=== PATIENT | male | born 1960 | race Caucasian/White ===

== ENCOUNTER 2018-10-25 10:36 | Emergency (ER) | payer BC ==
[2018-10-25 10:45] VITALS: BP 119/67
[2018-10-25] MEDS ORDERED: OXYCODONE-ACETAMINOPHEN 5-325 MG TABLET PO ONE ×2 (12:03→15:38)
--- NOTE | 2018-10-25 12:05 | ER Document Report ---
ED Medical Screen (RME) - General Chief Complaint: Hand Injury Stated Complaint: HAND LACERATION Time Seen by Provider: 10/25/18 11:59 Mode of Arrival: Ambulatory Information source: Patient Notes: Patient presents emergency department with laceration dorsal hand. Reports he was changing a light fixture and cut his hand on it. Reports tetanus is up-to-date went to urgent care but was sent here for possible tendon injury. No active bleeding. I have greeted and performed a rapid initial assessment of this patient. A comprehensive ED assessment and evaluation of the patient, analysis of test results and completion of the medical decision making process will be conducted by additional ED providers. Dictation of this chart was performed using voice recognition software; therefore, there may be some unintended grammatical errors. TRAVEL OUTSIDE OF THE [place] IN LAST 30 DAYS: No - HPI Onset: Just prior to arrival - Related Data Allergies/Adverse Reactions: Penicillins Allergy (Verified 10/25/18 10:45) Sulfa (Sulfonamide Antibiotics) Allergy (Verified 10/25/18 10:45) Physical Exam - Vital signs Vitals: Temp Pulse Resp BP Pulse Ox 98.1 F 99 17 119/67 97 10/25/18 10:43 10/25/18 10:43 10/25/18 10:43 10/25/18 10:43 10/25/18 10:43 Course - Vital Signs Vital signs: Temp Pulse Resp BP Pulse Ox 98.1 F 99 17 119/67 97 10/25/18 10:43 10/25/18 10:43 10/25/18 10:43 10/25/18 10:43 10/25/18 10:43
--- NOTE | 2018-10-25 12:27 | RADIOLOGY REPORT (SQ) ---
EXAM DESCRIPTION: HAND RIGHT 3 VIEWS COMPLETED DATE/TIME: 10/25/2018 12:15 pm REASON FOR STUDY: hand laceration COMPARISON: None. EXAM PARAMETERS: NUMBER OF VIEWS: Three views. TECHNIQUE: AP, lateral and oblique radiographic images acquired of the right hand. LIMITATIONS: None. FINDINGS: MINERALIZATION: Normal. BONES: No acute fracture or dislocation. No worrisome bone lesions. JOINTS: No effusions. SOFT TISSUES: No soft tissue swelling. No foreign body. OTHER: No other significant finding. IMPRESSION: NEGATIVE STUDY OF THE RIGHT HAND. NO RADIOGRAPHIC EVIDENCE OF ACUTE INJURY. TECHNICAL DOCUMENTATION: JOB ID: [id number] [employer]- All Rights Reserved Reading location - IP/workstation name: [email or web address]
[2018-10-25] MEDS ORDERED: LIDOCAINE 1% INJ-PF (10 MG/ML) 30 ML SDV INJ ONE (15:38)
--- NOTE | 2018-10-25 15:43 | ER Document Report ---
ED General - General Chief Complaint: Hand Injury Stated Complaint: HAND LACERATION Time Seen by Provider: 10/25/18 11:59 Mode of Arrival: Ambulatory Information source: Patient TRAVEL OUTSIDE OF THE [place] IN LAST 30 DAYS: No - HPI Patient complains to provider of: Right hand laceration Onset: Just prior to arrival Onset/Duration: Sudden Severity: Moderate Pain Level: 3 Associated symptoms: None Exacerbated by: Movement Relieved by: Denies Similar symptoms previously: No Recently seen / treated by doctor: No Notes: 58-year-old male coming in today with right hand laceration. He was working on a light fixture and the decorative bowl fell from the fixture and struck him on the right hand breaking and lacerating his right hand. His last tetanus shot was in 2012 with certainty. - Related Data Allergies/Adverse Reactions: Penicillins Allergy (Verified 10/25/18 10:45) Sulfa (Sulfonamide Antibiotics) Allergy (Verified 10/25/18 10:45) Past Medical History - General Information source: Patient - Social History Smoking Status: Never Smoker Family History: Reviewed & Not Pertinent Patient has suicidal ideation: No Patient has homicidal ideation: No Renal/ Medical History: Denies: Hx Peritoneal Dialysis Review of Systems - Review of Systems Notes: Constitutional: No fevers. No chills. EENT: No eye redness. No eye pain. No ear pain. No sore throat. Cardiovascular: No chest pain. No palpitations. Respiratory: No cough. No shortness of breath. No respiratory distress. Gastrointestinal: No abdominal pain. No nausea, vomiting, or diarrhea. Genitourinary: Atraumatic. No lesions. No pain. No discharge. Musculoskeletal: Atraumatic. No swelling. No deformities. Positive right hand laceration Skin: No rash or lesions. Lymphatic: No swollen lymph nodes. Neurologic: No headache. No syncope. Psychiatric: No suicidal or homicidal ideation. Physical Exam - Vital signs Vitals: Temp Pulse Resp BP Pulse Ox 98.1 F 99 17 119/67 97 10/25/18 10:43 10/25/18 10:43 10/25/18 10:43 10/25/18 10:43 10/25/18 10:43 - Notes Notes: General: Well-developed, well-nourished. In no acute distress. Non-toxic appearing. Cardiac: Well-perfused. Regular rate and rhythm. No murmurs, rubs, or gallops. Pulmonary: No respiratory distress. No cyanosis. Bilateral lung florez are clear to auscultation. Abdominal: Non-distended. Non-rigid. Bowels sounds are present in all four quadrants. No guarding or rebound. HEENT: Head is atraumatic. Conjunctivae not reddened. No tearing. PERRL. EOMI. Orbits atraumatic. No periorbital swelling or erythema. Oropharynx is without erythema, swelling, or exudates. Neck: Supple. No adenopathy. No meningismus. Dermatologic: Warm with good turgor. No rash. Atraumatic. Chest: Atraumatic. No chest wall tenderness to palpation. Musculoskeletal: There is a 3 cm laceration present over the MCP joint of the right index finger. Upon closer examination, the extensor tendon has been severed. No active bleeding. Patient can extend the affected digit with some effort. Genitourinary: Examination deferred Neurologic: No gross neurologic deficits. Psychiatric: Normal mood. Course - Vital Signs Vital signs: Temp Pulse Resp BP Pulse Ox 98.1 F 99 17 119/67 97 10/25/18 10:43 10/25/18 10:43 10/25/18 10:43 10/25/18 10:43 10/25/18 10:43 - Consults [email or web address] Time consulted: 16:30 Reason for consultation: 10/25/18 17:00 Lacerated extensor tendon Consulted provider: other - Recommends closure of the wound, splinting in extension, and follow-up first thing back in [place] with a hand surgeon. Procedures - Laceration/Wound Repair right index finger lac Time completed: 16:58 Wound length (cm): 3 Wound's Depth, Shape: Linear Laceration pre-procedure: Sterile PPE donned, Sterile drapes applied, Shur-Clens applied Anesthetic type: 1% Lidocaine Volume Anesthetic (mLs): 4 Wound explored: Clean Wound Repaired With: Sutures Suture Size/Type: 4:0 Number of Sutures: 6 Layer Closure?: No Post-procedure wound care: Sterile dressing applied, Splint applied Post-procedure NV exam normal: Yes Complications: No Notes: 10/25/18 16:59 Extensor tendon is severed. Will suture the wound and splint in extension Discharge - Discharge Clinical Impression: Hand laceration involving tendon Qualifiers: Encounter type: initial encounter Laterality: right Qualified Code(s): S61.411A - Laceration without foreign body of right hand, initial encounter; S66.921A - Laceration of unspecified muscle, fascia and tendon at wrist and hand level, right hand, initial encounter Condition: Good Disposition: HOME, SELF-CARE Instructions: Antibiotic Ointment Protection ([facility]), Laceration Care ([facility]), Tetanus Immunization Given ([facility]), Soap Cleansing ([facility]), Prophylactic Antibiotic ([facility]) Additional Instructions: Please be sure to follow-up Tuesday for this injury for repair by an orthopedic hand specialist. Take the antibiotics as prescribed for infection prevention. Ibuprofen as needed for pain Prescriptions: Clindamycin HCl 300 mg PO TID 5 Days #15 capsule Referrals: of choice, orthopedist [Other] - 10/30/18
[2018-10-25] MEDS ORDERED: HYDROCODONE/ACETAMINOPHEN 5-325 MG (6 TAB/ER DISP) PO PRN (17:07)
== END 2018-10-25 17:25 | disposition home or self-care (01) ==
LOC: ER 10:36
DX: S66.329A Laceration of extensor muscle, fascia and tendon of unspecified finger at wrist and hand level, initial encounter (principal); S61.411A Laceration without foreign body of right hand, initial encounter; W25.XXXA Contact with sharp glass, initial encounter; Y93.89 Activity, other specified; Z88.0 Allergy status to penicillin; Z88.2 Allergy status to sulfonamides
CPT/HCPCS: 12002; 99283; 73130; J3490